=== PATIENT | female | born 1980 | race Caucasian/White ===

== ENCOUNTER → 2022-03-20 | Outpatient (CLI) | payer BC, MEDICAID, SELFPAY ==
[2022-03-20 10:08] LABS: Erythrocyte Sedimentation Rate 36 mm/hr (0-30)
[2022-03-20 10:11] LABS: Absolute Lymphocyte Count 2.85 X10^3/uL (0.83-4.51); Absolute Neutrophil Count 5.7 X10^3/uL (2.0-7.7); Basophil# 0.07 X10^3/uL; Basophil% 0.8 % (0-1); Eosinophil# 0.16 X10^3/uL; Eosinophils% 1.7 % (0-5); Hematocrit 47.2 % (37-47); Hemoglobin 15.5 g/dL (12.0-15.0); Lymphocyte # 2.85 X10^3/ul (0.83-4.51); Mean Corp Hgb Conc 32.8 g/dL (32-36); Mean Corpuscular Volume 91.5 fL (81-99); Mean Platelet Vol. 9.6 fl (6.2-12.0); Monocyte# 0.41 X10^3/uL; Monocyte% 4.5 % (0-10); NRBC Flagged by Analyzer 0 % (0-5); Neutrophil # 5.68 X10^3/uL (2.7-7.7); Neutrophil % 61.7 % (47-70); Platelet Count 264 K/mm3 (150-450); RBC Distribution Width CV 12.5 % (11.6-14.6); Red Blood Count 5.16 M/mm3 (4.2-5.4); White Blood Count 9.2 K/mm3 (4.4-11.0)
[2022-03-20 10:15] LABS: Prothrombin Time (Protime)PT. 12.6 SECONDS (11.7-14.9)
[2022-03-20 10:32] LABS: Hemoglobin A1c 5.7 % (3.8-5.6)
[2022-03-20 10:41] LABS: ALB/GLOB Ratio 0.8 RATIO (0.9-2.4); AST(SGOT) 149 U/L (15-37); Alanine Aminotransfer ALT/SGPT 211 U/L (13-56); Albumin, Serum 3.8 g/dL (3.2-5.0); Alkaline Phosphatase 72 U/L (45-117); Anion Gap 4 (5-15); BUN 13 mg/dL (7-18); BUN/Creat Ratio 13.6 RATIO (10-20); CPK Total, Creatine Kinase 632 U/L (26-192); Calcium,Total 9.2 mg/dL (8.5-10.1); Chloride 105 mmol/L (98-107); Creatinine, Serum 0.96 mg/dL (0.55-1.02); EST Glomerular Filtration Rate 68 mL/min (>60); Est Glom Filt Rate - Afr Amer 83 mL/min (>60); Ferritin 265 ng/mL (8-252); Globulin 4.5 g/dL (2.2-4.2); Glucose 96 mg/dL (74-106); LDH 268 U/L (84-246); Potassium 3.8 mmol/L (3.5-5.1); Protein, Total 8.3 g/dL (6.4-8.2); Sodium Level 137 mmol/L (136-145)
[2022-03-21 15:07] LABS: Anti-Centromere B Ab <0.2 AI (0.0-0.9); Anti-Chromatin <0.2 AI (0.0-0.9); Anti-Jo <0.2 AI (0.0-0.9); Anti-Scleroderma-70 AB <0.2 AI (0.0-0.9); RNP Ab <0.2 AI (0.0-0.9); SJOGREN'S Anti-SS-A test < 0.2 AI (0.0-0.9); SJOGREN'S Anti-SS-B test < 0.2 AI (0.0-0.9); Smith Ab <0.2 AI (0.0-0.9)
[2022-03-22 12:16] LABS: Anti-Mitochondrial AB <20.0 Units (0.0-20.0); Anti-dsDNA Ab 1 IU/mL (0-9)
[2022-03-25 18:07] LABS: Albumin 3.9 g/dL (2.9-4.4); Alpha-1-Globulins 0.3 g/dL (0.0-0.4); Alpha-2-Globulins 0.8 g/dL (0.4-1.0); Angiotensin Convert Enzyme 61 U/L (14-82); Cytoplasmic Ab (C-ANCA) <1:20 titer (Neg:<1:20); Gamma Globulin 1.3 g/dL (0.4-1.8); HEPATITIS B SURFACE AG Negative (Negative); Hep C Antibodies <0.1 s/co ratio (0.0-0.9); Hepatitis A IgM Antibody Negative (Negative); Hepatitis B Core AB IgM Negative (Negative); Immunoglobulin A 292 mg/dL (87-352); Immunoglobulin E 104 IU/mL (6-495); Immunoglobulin G 1407 mg/dL (586-1602); Immunoglobulin M 145 mg/dL (26-217); PROEL- TOTAL PROTEIN 7.7 g/dL (6.0-8.5)
[2022-03-26 07:44] LABS: Anti-Smooth Muscle ABS 9 Units (0-19); Haptoglobin 188 mg/dL (42-296); IMMUNOFIXATION RESULT,S Comment: (.)
[2022-03-26 07:45] LABS: Copper, Serum or Plasma 129 ug/dL (80-158); Gastrin, Serum 244 pg/mL (0-115); Perinuclear Ab (P-ANCA) <1:20 titer (Neg:<1:20)
== END | disposition home or self-care (01) ==
LOC: LAB 09:19
PROVIDERS: PCP Nurse Practitioner Family; Referring Provider Internal Medicine Gastroenterology; Visit Provider Internal Medicine Gastroenterology
DX: M60.9 Myositis, unspecified (principal); K75.81 Nonalcoholic steatohepatitis (NASH)
CPT/HCPCS: 36415; 80053; 80074; 82164; 82525; 82550; 82728; 82784; 82785; 82941; 83010; 83036; 83516; 83615; 84165; 85025; 85610; 85652; 86140; 86225; 86235; 86256; 86334

== ENCOUNTER → 2022-03-29 | Outpatient (CLI) | payer BC, MEDICAID, SELFPAY ==
--- NOTE | 2022-03-29 08:55 | NM_ITS ---
EXAM: NM GASTRIC EMPTYING SCAN CLINICAL INDICATION: gastroparesis TECHNIQUE: Patient was fed meal containing 1.1 mCi of Tc99m sulfur colloid in oatmeal. Images of the abdomen were obtained over a period of 4 hours. Half time of gastric emptying and percent retention of radionuclide activity were calculated. This report was created using [employer] report [email or web address] technology. COMPARISON: None. FINDINGS: STOMACH: Approximately 30% gastric emptying at 60 minutes which is within the range of normal. NM/Gastric Emptying Study IMPRESSION: As above. Electronically Signed: Rey Nguyen MD at 16:49 EDT ,
== END | disposition home or self-care (01) ==
LOC: NM 08:52
PROVIDERS: PCP Nurse Practitioner Family; Referring Provider Internal Medicine Gastroenterology; Visit Provider Internal Medicine Gastroenterology
DX: M60.9 Myositis, unspecified (principal); K75.81 Nonalcoholic steatohepatitis (NASH)
CPT/HCPCS: 78264; A9541

== ENCOUNTER → 2022-04-24 | Outpatient (CLI) | payer BC, MEDICAID, SELFPAY ==
--- NOTE | 2022-04-24 09:17 | US_ITS ---
STUDY: ABDOMINAL ULTRASOUND - ELASTOGRAPHY REASON FOR VISIT: Female, 41 years old. Fatty infiltration of the liver. TECHNIQUE: Liver stiffness measurements were obtained on a [employer] RS 85 ultrasound machine using a CA 1-7 probe following the SRU guidelines. 3 measurements were obtained using a 2-D-SWE method. The IQR/M was 18% suggesting a quality data set. TECHNICAL QUALITY: Adequate. COMPARISON: Comparison is made with prior study done earlier in the day. FINDINGS: Liver: Hepatomegaly and diffuse fatty infiltration of the liver. Median liver stiffness measured 6 kPa. US/Elastography Parenchyma/Organ IMPRESSION: Liver stiffness measures 6 kPa compatible with F2-F3 (Mild to moderate liver fibrosis) Metavir score. Electronically Signed: Patel Aggarwal MD at 10:38 EDT ,
--- NOTE | 2022-04-24 09:17 | US_ITS ---
STUDY: ABDOMINAL ULTRASOUND - RIGHT UPPER QUADRANT REASON FOR VISIT: Female, 41 years old bloating; liver disease TECHNIQUE: Ultrasound evaluation of the right upper quadrant was performed with real-time and static grande-scale imaging. TECHNICAL QUALITY: Adequate. COMPARISON: None. FINDINGS: Liver: The liver is enlarged and measures 18.7 cm. There is increased echogenicity consistent with fatty infiltration. The bile ducts are within normal limits. There is hepatic color flow. The direction of portal flow is hepatopetal. There is no demonstrated mass lesion. Gallbladder: The patient is status post cholecystectomy. Common Bile Duct (C.B.D.): The common bile duct measures 5.4 mm. Pancreas: Normal size of the head, body and tail of the pancreas. There is normal echogenicity of the pancreas. There is no demonstrated pancreatic mass or cyst. Right Kidney: Normal size of the right kidney. The right kidney measures 12.2 cm x 6 cm x 4.5 cm. Normal renal cortex. The right cortex measures 1.8 cm. There is no demonstrated renal mass or cyst. There is no right hydronephrosis. US/Abdomen Limited IMPRESSION: Hepatomegaly and fatty infiltration of the liver. Electronically Signed: Patel Aggarwal MD at 10:34 EDT ,
== END | disposition home or self-care (01) ==
LOC: US 09:16
PROVIDERS: PCP Nurse Practitioner Family; Visit Provider Internal Medicine Gastroenterology
DX: M60.9 Myositis, unspecified (principal); K75.81 Nonalcoholic steatohepatitis (NASH)
CPT/HCPCS: 76705; 76981

== ENCOUNTER 2022-07-18 13:42 | Day surgery (SDC) | payer MEDICAID, SELFPAY ==
--- NOTE | 2022-07-18 | IMM_PTH ---
PATIENT: GINNY COTE LOC: EN U#:[id number] AGE/SX: 41/F ROOM: RE07/18/[address]: Dr. Yogesh Pavon DO : 1980 BED: DIS: 07/18/2022 SPEC #: [id number] RECD: 07/20/22 12:41 STATUS: DORIS REQ #: [id number] KAROL: 07/18/22 00:[address]: Yogesh Pavon DEPT: IMMUNOHISTOCHEMISTRY RECD BY: Magdalena Vazquez ENTERED: 07/20/22 12:42 SP TYPE: IMMUNO OTHR DR: Maria Antonia Guillen, RATE ANALYST-C Tissues: B - Esophageal mucous membrane Procedures: P53 (initial) KI-67 (add) PHYSICIAN & INSTITUTION [place] [address] SPECIMEN INFORMATION: Tissue Source: B ? Distal esophagus biopsy Clinical Info: Diarrhea Specimen Number: [id number] CPT code: 27306, 77880 METHODOLOGY: Deparaffinized sections of prefer/formalin-fixed tissue or PAP/DQ stained slides are incubated with monoclonal/polyclonal antibodies/oligonucleotide probes. Localization is made via biotin free immunoperoxidase method. Appropriate controls are performed and reacted as expected. Results on target cell population are indicated in the following table: RESULTS: ANTIBODY / CLONE RESULT Block B P53 (DO-7) negative Ki-67 (30-9) negative These tests were developed and their performance characteristics determined by [facility]. They may not have been cleared or approved by the U.S. Food and Drug Administration. The FDA has determined that such clearance or approval is not necessary. The above immunohistochemical/dualISH markers are ordered and reviewed by the Pathologist. INTERPRETATION: B. Distal esophagus, biopsy: No evidence of dysplasia. AM:deandre 07/21/2022
--- NOTE | 2022-07-18 13:51 | PCM.HP.BLA ---
History and Physical Date of Admission: 07/18/22 BELLA COTE, is a 41 F who presents to the office today for 3 month f/u chronic nausea, epigastric pain/bloating/hardness, postprandial diarrhea. Labs were done at her initial visit revealing the following abnormalities--03/20/2022 labs: ESR 36, CRP 15, hemoglobin A1c 5.7, ferritin 265, AST 149, ALT 211, LDH 268, CK 632, gastrin 244, immunofixation screen--presence of monoclonal protein unclear at this time, suggest repeat in 3 to 6 months. Stool tests weren't done. Gastric emptying study was normal. Liver elastography revealed mild to moderate fibrosis. Her insurance wouldn't allow CT, but now has different insurance. Stomach gets hard and bloated. Diarrhea few times a day, some cramping. Stool is never formed, varies from soft to watery. Has diarrhea as soon as she eats. Has nausea daily, wakes up with it, occas takes promethazine which helps. Rare vomiting, uses to vomit daily. Pantoprazole 20 mg at night, occas takes in AM too, started 4 mos ago, miracle, helped with epigastric pain and bloat. But upper abd still gets hard, painful, bloated; about 5 days per week since she started PPI. No causes or pattern she can discern. Spits up acid some times. No heartburn. Has an autoimmune myositis disorder, specifics unknown. Chronically elevated CPK. Muscle pains x couple of years, takes cyclobenzaprine prn. Saw one roll changer, was told no f/u since didn't have RA. Son has been diagnosed with UC and Crohn's; he is on Stelara; diagnosed with IBD age 18. He also has RA since age 3. Bella established with this clinic 03.20.22 with referral from PCP for evaluation of GERD, nausea and epigastric pain/cramping. For the last 25 years she has been having issues with emesis, bloating and upper/mid abdomen discomfort that has worsened in the last ten years to include distention with a hard feeling. Stools are generally soft and watery and occur 6-7 times or once a day. Previously established with gastroenterology who diagnosed collagenous colitis. CT abd/pel 8.05.19 finding fatty liver; cholecystectomy; umbilical hernia containing fat; diverticula without diverticulosis 03/29/22 NM/Gastric Emptying Study IMPRESSION: Approximately 30% gastric emptying at 60 minutes which is within the range of normal. 04/24/22 US/Abdomen Limited IMPRESSION: Hepatomegaly and fatty infiltration of the liver. Liver measures 18.7 cm 04/24/22 US/Elastography Parenchyma/Organ IMPRESSION: Liver stiffness measures 6 kPa compatible with F2-F3 (Mild to moderate liver fibrosis) Metavir score. ROS Const Constitutional: Positive for fatigue and weakness ENT ENT: No difficulty swallowing Gastro GI: Positive for bloating, diarrhea, heartburn, excessive flatus and nausea/dyspepsia; No abdominal pain, belching, change in bowel habits, change in stool character, coffee ground emesis, constipation, cramping, difficulty swallowing, feeling full early, incontinent of stools, Vomiting blood/hematemesis, Blood in stool, loose stools, Black,tarry stools, pain with swallowing, vomiting or other Musc Musculoskeletal: Positive for joint pain, back pain, muscle cramps, numbness, stiffness, tingling, Arthritis and sciatica Skin Skin: No yellowing of the eye or itchy eyes Neuro Neurology: Positive for weakness, numbness and tingling Psych Psychiatric: No anxiety and No depression Endo Endocrine: Positive for fatigue Aller/Imm Allergy/Immunologic: No itchy eyes Jayjay/Lymp Hematologic/Lymphatic: No easy bleeding or easy bruising Exam Const General: cooperative and comfortable Nutritional Appearance: obese Orientation: alert, awake and oriented x3 HENMT Head: normal to inspection Eyes General: appearance normal, both eyes and all related structures Resp Effort & Inspection: normal respiratory effort Quality Reporting Tobacco Screening ([facility]) Smoking Status: Former smoker Assessment and Plan Assessment and Plan (1) Abdominal pain: ?Status:?Acute ?Plan: 41 yr old female with chronic nausea, epigastric pain/bloat, diarrhea/dumping. Some relief with PPI. Normal gastric emptying study. We reviewed her results so far. Start treatment for NAFLD with vitamin E and ursodiol, repeat elastography in 6 mos. Schedule EGD and colonoscopy, f/u 2 wks after. DDx includes gastritis, PUD, IBD, microscopic colitis. (2) NAFLD (nonalcoholic fatty liver disease): ?Status:?Acute ?Plan: as above (3) Myositis: ?Status:?Acute ?Plan: Will refer to Rheumatology (4) Diarrhea: ?Status:?Acute ?Plan: as above ? ? ? Orders: Orders Abdomen/Pelvis WITH Contrast Today K76.0 - Fatty (change of) liver, not elsewhere classified, M60.9 - Myositis, unspecified, R10.9 - Unspecified abdominal pain ? Referrals Rheumatology ? M60.9 - Myositis, unspecified ? Medications: New vitamin E (dl, acetate) 180 mg? PO BID 180 caps 1RF ? ? ursodiol 250 mg? PO BID 180 tabs 1RF NAFLD ? ? I have re-examined the patient. There are no clinical changes since date of exam.
[2022-07-18 14:12] VITALS: BP 114/82; PULSE 71; RESP 16; TEMP 36.8; O2SAT 97; BMI 42.5
[2022-07-18] MEDS: Lactated Ringers 1,000 ML 15 ML IV (14:18)
--- NOTE | 2022-07-18 14:45 | COLBX_PTH ---
PATIENT: GINNY COTE LOC: EN U#:[id number] AGE/SX: 41/F ROOM: RE07/18/[address]: Dr. Yogesh Pavon DO : 1980 BED: DIS: 07/18/2022 SPEC #: [id number] RECD: 07/18/22 16:54 STATUS: DORIS REDemetria #: [id number] KAROL: 07/18/22 14:[address]: Yogesh Pavon DEPT: SURGICAL PATHOLOGY RECD BY: Mick Michaud ENTERED: 07/19/22 07:17 SP TYPE: COLON BX OTHR DR: Maria Antonia Guillen, ASSEMBLER FISHING FLOATS-C Tissues: A - Duodenum, NOS B - Esophagus, NOS C - Ileum, NOS D - Ascending colon E - COLON BIOPSY Procedures: Special Stain Group II Surgery Specimen Level IV Alcian Blue/PAS (control) HEADER OPERATION: Colonoscopy, EGD ([facility]), biopsy PRE-OP DIAGNOSIS: Diarrhea TISSUE SUBMITTED: A ? Duodenum biopsy, B ? Distal esophagus biopsy, C ? Terminal ileum biopsy, D ? Ascending colon polyp, E ? Random colon biopsy MICROSCOPIC DIAGNOSIS A. Duodenum, biopsy: Fragments of duodenal mucosa, no pathologic diagnosis. B. 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 Chronic inflammation. Negative for dysplasia. See comment. C. Terminal ileum, biopsy: Fragments of small intestinal mucosa, no pathologic diagnosis. D. Ascending colon polyp, biopsy: Tubular adenoma. E. Colon, random biopsy: Fragments of colonic mucosa, no pathologic diagnosis. SJ:deandre 07/20/2022 COMMENT B. Alcian blue/PAS stain with matched control is used in the evaluation of the specimen. Immunohistochemistry ([id number]) for P53 and Ki-67 will be performed and results will be reported separately. MICROSCOPIC DESCRIPTION Slides are reviewed. GROSS DESCRIPTION A - Received in fixative is one container labeled with the patient's name and designated duodenum biopsy. The specimen consists of multiple irregular fragments of light black soft tissue that in aggregate measure 1 x 0.2 x 0.1 cm. The specimen is totally submitted in one cassette. B - Received in fixative is one container labeled with the patient's name and designated distal esophagus biopsy. The specimen consists of multiple irregular fragments of light black soft tissue that in aggregate measure 0.7 x 0.7 x 0.1 cm. The specimen is totally submitted in one cassette. C - Received in fixative is one container labeled with the patient's name and designated terminal ileum biopsy. The specimen consists of multiple irregular fragments of light black soft tissue that in aggregate measure 0.7 x 0.5 x 0.1 cm. The specimen is totally submitted in one cassette. D - Received in fixative is one container labeled with the patient's name and designated ascending colon polyp. The specimen consists of a black-pink polyp measuring 0.7 x 0.6 x 0.6 cm. The apparent base is inked. The entire specimen is submitted in one cassette. E - Received in fixative is one container labeled with the patient's name and designated random colon biopsy. The specimen consists of multiple irregular fragments of light black soft tissue that in aggregate measure 1.5 x 0.5 x 0.1 cm. The specimen is totally submitted in one cassette. / SJ:rg 07/19/2022 TC:1 CPT: 70096 x5, 82624
[2022-07-18 15:52] VITALS: BP 114/82; BP 122/66; PULSE 75; RESP 16; TEMP 36.6; O2SAT 100
--- NOTE | 2022-07-18 15:57 | OP.CCLET_ITS ---
07/18/2022 Yasmin De Anda Re : Upper GI endoscopy procedure for Bella Mcdaniels Dear Mindy This procedure was performed on Monday, July 18, 2022. My impressions and recommendations are as follows: Impressions : - Z-line irregular, 37 cm from the incisors. Biopsied. - Small hiatal hernia. - Erythematous duodenopathy. Biopsied. Recommendations : - Discharge patient to home. - Resume previous diet. - Continue present medications. - Await pathology results. My findings are described in the full procedure note, which is enclosed. If I can be of further assistance, please feel free to contact me at . Sincerely, Yogesh Pavon, 07/18/2022 3:56:37 PM This report has been signed electronically.
--- NOTE | 2022-07-18 15:57 | OP.EGD_ITS ---
Patient Name: Bella Mcdaniels Procedure Date: 07/18/2022 3:07 PM Date of : 1980 Age: 41 Procedure: Upper GI endoscopy Indications: Epigastric abdominal pain, Dyspepsia, Heartburn Providers: Yogesh Pavon DO Medicines: Monitored Anesthesia Care Patient Profile: This is a 41 year old female. Refer to note in patient chart for documentation of history and physical. Patient has symptoms of chronic abdominal cramping, chronic global abdominal pain, chronic dyspepsia and chronic nausea. Complications: No immediate complications. Procedure: Pre-Anesthesia Assessment: - Prior to the procedure, a History and Physical was performed, and patient medications and allergies were reviewed. The risks and benefits of the procedure and the sedation options and risks were discussed with the patient. All questions were answered and informed consent was obtained. Patient identification and proposed procedure were verified by the physician in the pre-procedure area. Mental Status Examination: alert and oriented. Airway Examination: normal oropharyngeal airway and neck mobility. Respiratory Examination: clear to auscultation. CV Examination: normal. Prophylactic Antibiotics: The patient does not require prophylactic antibiotics. Prior Anticoagulants: The patient has taken no previous anticoagulant or antiplatelet agents. ASA Grade Assessment: II - A patient with mild systemic disease. After reviewing the risks and benefits, the patient was deemed in satisfactory condition to undergo the procedure. The anesthesia plan was to use monitored anesthesia care (MAC). Immediately prior to administration of medications, the patient was re-assessed for adequacy to receive sedatives. The heart rate, respiratory rate, oxygen saturations, blood pressure, adequacy of pulmonary ventilation, and response to care were monitored throughout the procedure. The physical status of the patient was re-assessed after the procedure. After obtaining informed consent, the endoscope was passed under direct vision. Throughout the procedure, the patient's blood pressure, pulse, and oxygen saturations were monitored continuously. The colonoscope was introduced through the mouth, and advanced to the second part of duodenum. The upper GI endoscopy was accomplished without difficulty. The patient tolerated the procedure well. Scope In: 3:20:45 PM Scope Out: 3:25:33 PM Total Procedure Duration Time 0 hours 4 minutes 48 seconds Findings: The Z-line was irregular and was found 37 cm from the incisors. Biopsies were taken with a cold forceps for histology. Verification of patient identification for the specimen was done. Estimated blood loss was minimal. A small hiatal hernia was present. Patchy mildly erythematous mucosa without active bleeding and with no stigmata of bleeding was found in the duodenal bulb. Biopsies were taken with a cold forceps for histology. Verification of patient identification for the specimen was done. Estimated blood loss was minimal. Impression: - Z-line irregular, 37 cm from the incisors. Biopsied. - Small hiatal hernia. - Erythematous duodenopathy. Biopsied. Recommendation: - Discharge patient to home. - Resume previous diet. - Continue present medications. - Await pathology results. Procedure Code(s): --- Professional --- 62056, Esophagogastroduodenoscopy, flexible, transoral; with biopsy, single or multiple CPT copyright 2017 [employer]. All rights reserved. The codes documented in this report are preliminary and upon field service technician review may be revised to meet current compliance requirements. Yogesh Pavon DO 07/18/2022 3:56:37 PM This report has been signed electronically. Number of Addenda: 0 Note Initiated On: 07/18/2022 3:07 PM
[2022-07-18 16:00] VITALS: BP 114/82; BP 118/76; PULSE 62; RESP 16; O2SAT 100
--- NOTE | 2022-07-18 16:01 | OP.CCLET_ITS ---
07/18/2022 Yasmin De Anda Re : Colonoscopy procedure for Bella Mcdaniels Dear Mindy This procedure was performed on Monday, July 18, 2022. My impressions and recommendations are as follows: Impressions : - One 5 mm polyp in the ascending colon, removed with a hot snare. Resected and retrieved. - Congested mucosa in the sigmoid colon and in the descending colon. Biopsied. - Diverticulosis in the recto-sigmoid colon and in the sigmoid colon. - The examined portion of the ileum was normal. Biopsied. Recommendations : - Discharge patient to home. - Resume previous diet. - Continue present medications. - Await pathology results. - Repeat colonoscopy in 5 years for surveillance. - Return to GI office. My findings are described in the full procedure note, which is enclosed. If I can be of further assistance, please feel free to contact me at . Sincerely, Yogesh Pavon, 07/18/2022 4:00:54 PM This report has been signed electronically.
--- NOTE | 2022-07-18 16:01 | OP.COLON_ITS ---
Patient Name: Bella Mcdaniels Procedure Date: 07/18/2022 3:25 PM Date of : 1980 Age: 41 Procedure: Colonoscopy Indications: Chronic diarrhea Providers: Yogesh Pavon DO Medicines: Monitored Anesthesia Care Patient Profile: This is a 41 year old female. Refer to note in patient chart for documentation of history and physical. Patient has symptoms of chronic abdominal cramping, chronic global abdominal pain, chronic dyspepsia and chronic nausea. Last Colonoscopy: none. The patient's first colonoscopy is today. Complications: No immediate complications. Procedure: Pre-Anesthesia Assessment: - Prior to the procedure, a History and Physical was performed, and patient medications and allergies were reviewed. The risks and benefits of the procedure and the sedation options and risks were discussed with the patient. All questions were answered and informed consent was obtained. Patient identification and proposed procedure were verified by the physician in the pre-procedure area. Mental Status Examination: alert and oriented. Airway Examination: normal oropharyngeal airway and neck mobility. Respiratory Examination: clear to auscultation. CV Examination: normal. Prophylactic Antibiotics: The patient does not require prophylactic antibiotics. Prior Anticoagulants: The patient has taken no previous anticoagulant or antiplatelet agents. ASA Grade Assessment: II - A patient with mild systemic disease. After reviewing the risks and benefits, the patient was deemed in satisfactory condition to undergo the procedure. The anesthesia plan was to use monitored anesthesia care (MAC). Immediately prior to administration of medications, the patient was re-assessed for adequacy to receive sedatives. The heart rate, respiratory rate, oxygen saturations, blood pressure, adequacy of pulmonary ventilation, and response to care were monitored throughout the procedure. The physical status of the patient was re-assessed after the procedure. After I obtained informed consent, the scope was passed under direct vision. Throughout the procedure, the patient's blood pressure, pulse, and oxygen saturations were monitored continuously. The colonoscope was introduced through the anus and advanced to the terminal ileum. The colonoscopy was performed without difficulty. The patient tolerated the procedure well. The quality of the bowel preparation was good. Scope In: 3:28:00 PM Scope Withdrawal Time 0 hours 11 minutes 28 seconds Scope Out: 3:44:50 PM Total Procedure Duration Time 0 hours 16 minutes 50 seconds Findings: The perianal and digital rectal examinations were normal. A 5 mm polyp was found in the ascending colon. The polyp was sessile. The polyp was removed with a hot snare. Resection and retrieval were complete. Verification of patient identification for the specimen was done. Estimated blood loss was minimal. An area of mildly congested mucosa was found in the sigmoid colon and in the descending colon. Biopsies for histology were taken with a cold forceps for evaluation of celiac disease. Estimated blood loss: none. A few small-mouthed diverticula were found in the recto-sigmoid colon and sigmoid colon. The terminal ileum appeared normal. Biopsies were taken with a cold forceps for histology. Verification of patient identification for the specimen was done. Estimated blood loss was minimal. Impression: - One 5 mm polyp in the ascending colon, removed with a hot snare. Resected and retrieved. - Congested mucosa in the sigmoid colon and in the descending colon. Biopsied. - Diverticulosis in the recto-sigmoid colon and in the sigmoid colon. - The examined portion of the ileum was normal. Biopsied. Recommendation: - Discharge patient to home. - Resume previous diet. - Continue present medications. - Await pathology results. - Repeat colonoscopy in 5 years for surveillance. - Return to GI office. Procedure Code(s): --- Professional --- 43758, Colonoscopy, flexible; with removal of tumor(s), polyp(s), or other lesion(s) by snare technique 73293, 59, Colonoscopy, flexible; with biopsy, single or multiple CPT copyright 2017 [employer]. All rights reserved. The codes documented in this report are preliminary and upon air compressor engineer review may be revised to meet current compliance requirements. Yogesh Pavon DO 07/18/2022 4:00:54 PM This report has been signed electronically. Number of Addenda: 0 Note Initiated On: 07/18/2022 3:25 PM
[2022-07-18 16:05] VITALS: BP 111/81; BP 114/82; PULSE 60; RESP 16; O2SAT 100
[2022-07-18 16:09] VITALS: BP 114/82; BP 117/74; PULSE 59; RESP 16; TEMP 36.4; O2SAT 100
[2022-07-18 16:37] VITALS: BP 114/82
== END 2022-07-18 16:40 | disposition home or self-care (01) ==
LOC: EN 13:42 → AC 13:44
PROVIDERS: PCP Nurse Practitioner Family; Referring Provider Nurse Practitioner Family; Visit Provider Internal Medicine Gastroenterology
PROC: 0DJD8ZZ Inspection of Lower Intestinal Tract, Via Natural or Artificial Opening Endoscopic (ICD-10-PCS; CPT 45378; principal; 2022-07-18 14:40)
DX: K44.9 Diaphragmatic hernia without obstruction or gangrene (principal); Z87.891 Personal history of nicotine dependence; K52.9 Noninfective gastroenteritis and colitis, unspecified; M60.9 Myositis, unspecified; K63.5 Polyp of colon; K57.30 Diverticulosis of large intestine without perforation or abscess without bleeding
CPT/HCPCS: 45380; 45385; 43239; 88305; 88313; 88341; 88342; J7120; J2405

== ENCOUNTER → 2022-07-29 | Outpatient (CLI) | payer MEDICAID, SELFPAY ==
[2022-08-03 15:44] LABS: Giardia Lamblia, Stool EIA Negative (Negative); Pancreatic Elastase, Fecal > 500 (>200)
[2022-08-03 15:51] LABS: Calprotectin, Stool 45 ug/g (0-120)
== END | disposition home or self-care (01) ==
LOC: LABSPEC 09:21
PROVIDERS: PCP Nurse Practitioner Family; Visit Provider Internal Medicine Gastroenterology
DX: K58.9 Irritable bowel syndrome, unspecified (principal); M60.9 Myositis, unspecified; K75.81 Nonalcoholic steatohepatitis (NASH)
CPT/HCPCS: 82653; 83630; 83993; 87177; 87209; 87329; 87506

== ENCOUNTER → 2022-07-31 | Outpatient (CLI) | payer MEDICAID, SELFPAY ==
--- NOTE | 2022-07-31 08:06 | CT_ITS ---
STUDY: CT ABDOMEN AND PELVIS WITH CONTRAST REASON FOR EXAM: Female, 41 years old. Abd pain, bloat, diarrhea, fatty liver -- oral and IV. Hepatomegaly and fatty infiltration of the liver. RADIATION DOSAGE (If Supplied By Facility): CTDIvol = ( 31.22 ) mGy, DLP = ( 1833.25 ) mGycm TECHNIQUE: Transaxial images were obtained from the dome of the diaphragm to the symphysis pubis with oral contrast. Oral and amp;amp; IV Readi-CAT and amp;amp; 100mL Isovue-300 was administered. Sagittal and coronal images were reconstructed. Individualized dose optimization techniques were used for this CT. COMPARISON: Comparison is made with prior sonogram dated 04/24/2022. FINDINGS: Minimal increased linear markings at the lung bases suggestive of atelectasis. The visualized portions of the heart are within normal limits. There is decreased attenuation of the liver consistent with steatosis. There are surgical clips in the gallbladder fossa consistent with a prior cholecystectomy. Normal spleen. Normal pancreas. Normal bilateral adrenal glands. Normal right kidney. Normal left kidney. There is a small hiatal hernia. Normal small intestine. There are multiple colonic diverticula consistent with diverticulosis. The appendix is visualized and appears normal. Normal abdominal aorta. Normal inferior vena cava. Normal retroperitoneum. Normal urinary bladder. I suspect a 3.5 cm fundal fibroid. Follicles are seen in both ovaries. Small bilateral inguinal hernias containing fat. Normal osseous structures. CT/Abdomen/Pelvis WITH Contrast IMPRESSION: Diffuse fatty infiltration of the liver. Status post cholecystectomy. Electronically Signed: Patel Aggarwal MD at 14:46 EDT ,
== END | disposition home or self-care (01) ==
LOC: CT 08:04
PROVIDERS: PCP Nurse Practitioner Family; Referring Provider Internal Medicine Gastroenterology; Visit Provider Internal Medicine Gastroenterology
DX: R10.9 Unspecified abdominal pain (principal); K76.0 Fatty (change of) liver, not elsewhere classified; M60.9 Myositis, unspecified
CPT/HCPCS: 74177; Q9967; A4216